=== PATIENT | female | born 1965 | race Caucasian/White ===

== ENCOUNTER 2019-04-20 08:17 | Day surgery (SDC) | payer OTHER ==
[~2019-04-20] VITALS: Ht 157.5 cm; Wt 74.5 kg
[2019-04-20] VITALS (7 sets, daily range): BP systolic 116–166; BP diastolic 62–80; PULSE 65–72; RESP 16–18; Ht 157.5 cm; Wt 74.5 kg
[~2019-04-20 08:17] MED LIST: ATOR40TA68 PO; HYDR25TA6 PO; RANI150T5 PO
[2019-04-20] MEDS ORDERED: MIDAZOLAM 1 MG/ML 2 ML INJ ONE ×2 (10:08)
[2019-04-20] MEDS ORDERED: FENTAnyl 50 MCG/ML VIAL ONE (10:08)
--- NOTE | 2019-04-20 20:47 | GILP ---
DATE OF PROCEDURE: PROCEDURE PERFORMED: Colonoscopy with biopsy. INDICATION: A 53-year-old female undergoing this procedure for screening colonoscopy. The risk of t he procedure, related and unrelated complications, anesthetic risks, alternatives discussed. Informe d consent was obtained. DESCRIPTION OF PROCEDURE: Patient was brought to the GI lab, sedated with Versed 3 mg, fentanyl 75 m cg. After optimal sedation, digital examination done, which was normal. Scope was passed with much ease into rectum, advanced through sigmoid, descending, transverse colon, all the way into cecum. Ap pendiceal orifice identified. IC valve identified, entered into terminal ileum which was normal. Th ere was some scattered stool in the right side of the colon precluding the visibility by 5% to 7%. R est of the colon appeared normal. Mild diverticulosis seen in the left side of the colon. The scope was removed with excellent patient tolerance. IMPRESSION: 1. Normal finding all the way into cecum except for a mild diverticulosis left side of the colon. 2. Normal terminal ileum. 3. Normal digital examination. PLAN: Stay on a high fiber diet. I could not take any pictures because the Olympus scope was malfun ctioning, so far as pictures were concerned. Dictated By: ERNIE CASTILLO/AILYN Conf#: [id number] DID#: [id number]
== END 2019-04-20 12:56 | disposition home or self-care (01) ==
LOC: GIL 08:17
PROVIDERS: ATTEND Internal Medicine Gastroenterology
DX: Z12.11 Encounter for screening for malignant neoplasm of colon (principal); K57.30 Diverticulosis of large intestine without perforation or abscess without bleeding
CPT/HCPCS: 45378; J2250; J3010